=== PATIENT | male | born 1955 | race Caucasian/White ===

== ENCOUNTER 2023-10-26 09:57 | Day surgery (SDC) | payer MEDICARE, BC ==
[~2023-10-26] VITALS: Ht 193 cm; Wt 90.4 kg
[~2023-10-26 09:57] MED LIST: ATOR1TAB21 PO; PHENYLEPHRINE 10% OPHTH SOL 5ML OS PRN; VITA100093 PO; fentaNYL 100 MCG/2 ML INJECTION As Ordered ONE
[2023-10-26] MEDS: OFLOXACIN 0.3 % (OCUFLOX) OPTH SOL 5ML OS ONE (11:11)
[2023-10-26] MEDS: ATROPINE SULFATE 1% OPHTH SOLN 2ML BTL OS SCH (11:11)
[2023-10-26] MEDS: LIDOCAINE 3.5 % 1ML OPHTH TOPICAL GEL OU ONE (11:11)
[2023-10-26] MEDS: PHENYLEPHRINE 2.5% OPHTH SOL 2ML OS SCH (11:12)
[2023-10-26] MEDS: TROPICAMIDE 1% OPHTH SOLN 15ML OS SCH (11:12)
[2023-10-26] MEDS: BSS IRRIG/VANCO(10MG)/TOBRA(5MG)/EPINEPH(1:1000-0.5CC)500ML BAG-ORONLY As Ordered ONE (12:16)
[2023-10-26] MEDS: LIDOCAINE 1% SDV 5ML VIAL As Ordered ONE (12:16)
[2023-10-26] MEDS: CEFUROXIME 1MG/0.1ML INTRACAMERAL INJ As Ordered ONE (12:22)
[2023-10-26 12:30] VITALS: BP 126/83; TEMP 97.3; O2SAT 99
== END 2023-10-26 12:42 | disposition home or self-care (01) ==
LOC: M SDC 09:57
PROVIDERS: ATTEND Ophthalmology
DX: H25.12 Age-related nuclear cataract, left eye (principal); I35.9 Nonrheumatic aortic valve disorder, unspecified; Z79.899 Other long term (current) drug therapy
CPT/HCPCS: 66984; J0697; J3010; V2632